=== PATIENT | male | born 1970 | race Asian ===

== ENCOUNTER 2018-05-05 07:06 | Emergency (ER) | payer OTHER ==
[2018-05-05 07:11] VITALS: TEMP 98.9; BMI 23.7
[2018-05-05] MEDS ORDERED: ALBUTEROL SO4 2.5/IPRATROPIUM 0.5 INH SOL 3 ML VIAL.NEB. NEB ONE ×4 (07:23→08:01)
--- NOTE | 2018-05-05 07:33 | PDOC ---
History of Present Illness - General Chief Complaint: Respiratory Stated Complaint: COUGH,CONGESTION Time Seen by Provider: 05/05/18 07:15 Past History - Past Medical History Allergies/Adverse Reactions: Allergies Allergy/AdvReac Type Severity Reaction Status Date / Time No Known Allergies Allergy Unverified 05/05/18 07:18 Home Medications: Ambulatory Orders Amlodipine Besylate 10 mg PO DAILY 05/05/18 Asthma: Yes COPD: No HTN: Yes - Suicide/Smoking/Psychosocial Hx Smoking History: Never smoked *Physical Exam - Vital Signs Last Vital Signs Temp Pulse Resp BP Pulse Ox 98.9 F 99 H 18 157/106 H 100 05/05/18 07:08 05/05/18 07:08 05/05/18 07:08 05/05/18 07:08 05/05/18 07:08 *DC/Admit/Observation/Transfer - Discharge Dispostion Condition at time of disposition: Stable - Referrals Referrals: Moises Marsh MD [Primary Care Provider] - - Patient Instructions - Post Discharge Activity
[2018-05-05 07:54] VITALS: BP 142/100; PULSE 88
[2018-05-05] MEDS ORDERED: guaiFENesin/CODEINE 10 ML UNIT-DOSE CUPS PO ONE (08:10)
[2018-05-05] MEDS ORDERED: guaiFENesin/CODEINE 10 ML UNIT-DOSE CUPS ONE (08:12)
--- NOTE | 2018-05-05 08:24 | PDOC ---
History of Present Illness - General Chief Complaint: Respiratory Stated Complaint: COUGH,CONGESTION Time Seen by Provider: 05/05/18 07:15 - History of Present Illness Initial Comments: 05/05/18 08:52 Chief complaint: Wheezing and shortness of breath History of present illness: Patient with nonproductive cough, wheezing, and shortness of breath, primarily when lying down to sleep at night, for 2 days. History of asthma precipitated by upper respiratory infection, bronchitis, and cold weather. Uses home nebulizer containing albuterol, but this has not been effective. Review of systems: No fever/chills, chest pain, abdominal pain, nausea, vomiting , diarrhea, visual or focal neurologic symptoms, unsteadiness of gait. Past medical history: Vague history of asthma, which seems to consist of cough and wheezing when he requires an upper respiratory infection, or when the weather is cold. Uses home nebulizer and inhaler when needed. No prior hospitalizations, intubations. Patient only recalls 1 course of steroids which were oral, approximately one year ago. Also intermittent high blood pressure, prescribed amlodipine, checks his pressure at home and does not take the medication when his pressure is controlled. He is been not taking blood pressure medication lately because his pressure has been all right. Former smoker, quit 2 years ago. 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 Quit smoking 2 years ago. Social alcohol, none recently. No drugs. Fully ambulatory. Without disability. Family history: Noncontributory including coronary artery disease, lung disease. Physical exam: Alert and oriented well-developed well-nourished mild distress due to wheezing, no tachypnea or significant dyspnea. Cooperative Afebrile, vital signs normal except for mildly elevated blood pressure initially , which improved with improvement of his respiratory symptoms. oxygen saturation initially of 100% on room air. HEENT clear Neck supple without bruit mass or nodes Chest reveals bilateral wheezing, end expiratory, moderate, symmetric. No rales or rhonchi. No significant tachypnea or dyspnea CV regular without murmur rub or gallop pulses full and symmetric no JVD or edema Abdomen benign Extremities no CCE Skin clear, no rash, adequate turgor and wet mucous membranes Neurological intact. Gait stable and unimpaired Impression: Acute viral bronchitis, probably superimposed on seasonal ALLERGY/ asthma. Respiratory status stable Plan: Nebulizers, antibiotics, cough suppressant, consider steroids if symptoms are uncontrolled. Observe Past History - Past Medical History Allergies/Adverse Reactions: Allergies Allergy/AdvReac Type Severity Reaction Status Date / Time No Known Allergies Allergy Unverified 05/05/18 07:18 Home Medications: Ambulatory Orders Albuterol 2.5/Ipratropium 0.5 [Duoneb -] 1 amp NEB Q4H PRN #1 box 05/05/18 Amlodipine Besylate 10 mg PO DAILY 05/05/18 Amoxicillin - [Amoxicillin 250mg Capsule -] 250 mg PO TID #15 capsule 05/05/18 Guaifenesin AC [Robitussin-AC] 1 - 2 tsp PO Q4HWA PRN #120 ml MDD 8 05/05/18 Asthma: Yes COPD: No HTN: Yes - Suicide/Smoking/Psychosocial Hx Smoking History: Never smoked *Physical Exam - Vital Signs Last Vital Signs Temp Pulse Resp BP Pulse Ox 98.9 F 88 18 142/100 98 05/05/18 07:08 05/05/18 07:54 05/05/18 07:08 05/05/18 07:54 05/05/18 07:54 ED Treatment Course - Medications Given in the ED: ED Medications Discontinued Medications Generic Name Dose Route Start Last Admin Trade Name Freq PRN Reason Stop Dose Admin Albuterol/Ipratropium 1 amp 05/05/18 07:33 05/05/18 07:37 Duoneb - NEB 05/05/18 07:34 1 amp ONCE ONE Administration Albuterol/Ipratropium 1 amp 05/05/18 07:58 05/05/18 08:03 Duoneb - NEB 05/05/18 07:59 1 amp ONCE ONE Administration Guaifenesin/Codeine Phosphate 10 ml 05/05/18 08:10 05/05/18 08:16 Robitussin Ac - PO 05/05/18 08:11 10 ml ONCE ONE Administration Medical Decision Making - Medical Decision Making 05/05/18 09:00 Much improved, both subjectively and objectively, after DuoNeb treatments 2. Wheezing completely resolved. Respiratory rate 12 and unlabored. O2 saturation remains 100%. Patient feels much better. Patient's nebulizer solution changed from albuterol to albuterol and Atrovent combination. Cough suppressant and antibiotics prescribed. Advised to rest at home, avoid the cold, return to ER if there are any further symptoms. Fully ambulatory and in no distress respiratory or otherwise upon discharge with to follow-up as directed *DC/Admit/Observation/Transfer Diagnosis at time of Disposition: Bronchitis - Discharge Dispostion Disposition: HOME Condition at time of disposition: Improved Decision to Admit order: No - Prescriptions Prescriptions: Albuterol 2.5/Ipratropium 0.5 [Duoneb -] 1 amp NEB Q4H PRN #1 box PRN Reason: Asthma Amoxicillin - [Amoxicillin 250mg Capsule -] 250 mg PO TID #15 capsule Guaifenesin AC [Robitussin-AC] 1 - 2 tsp PO Q4HWA PRN #120 ml MDD 8 PRN Reason: Cough - Referrals Referrals: Moises Marsh MD [Primary Care Provider] - - Patient Instructions Printed Discharge Instructions: DI for Acute Bronchitis - Post Discharge Activity
== END 2018-05-05 08:45 | disposition home or self-care (01) ==
LOC: FER 07:06
PROC: 3E0F7GC Introduction of Other Therapeutic Substance into Respiratory Tract, Via Natural or Artificial Opening (ICD-10-PCS; principal; 2018-05-05)
DX: J40 Bronchitis, not specified as acute or chronic (principal); J45.909 Unspecified asthma, uncomplicated; I10 Essential (primary) hypertension
CPT/HCPCS: 99281-25